=== PATIENT | female | born 1970 | race Caucasian/White ===

== ENCOUNTER 2016-08-07 23:59 | Emergency (ER) | payer BC | END 2016-08-08 03:04 | disposition home or self-care (01) | LOC: ER 23:59 | DX: G43.909 Migraine, unspecified, not intractable, without status migrainosus (principal); F41.9 Anxiety disorder, unspecified; F17.200 Nicotine dependence, unspecified, uncomplicated; Z88.5 Allergy status to narcotic agent; Z90.710 Acquired absence of both cervix and uterus | CPT/HCPCS: 96374; 99284; J1200; J1885; J2765 ==